=== PATIENT | female | born 1980 ===

== ENCOUNTER 2020-05-03 11:05 | Day surgery (SDC) | payer OTHER ==
[2020-05-01 15:02] VITALS: BMI 19.3
[2020-05-03] MEDS ORDERED: PROPOFOL 20 ML ONE ×2 (11:54)
[2020-05-03 12:47] VITALS: BP 120/70; PULSE 95; TEMP 98.6
== END 2020-05-03 12:38 | disposition home or self-care (01) ==
LOC: FASU-ENDO 11:05
PROVIDERS: ATTEND Internal Medicine Gastroenterology
PROC: 0DB78ZX Excision of Stomach, Pylorus, Via Natural or Artificial Opening Endoscopic, Diagnostic (ICD-10-PCS; 2020-05-03)
PROC: 0DB48ZX Excision of Esophagogastric Junction, Via Natural or Artificial Opening Endoscopic, Diagnostic (ICD-10-PCS; 2020-05-03)
PROC: 0DB98ZX Excision of Duodenum, Via Natural or Artificial Opening Endoscopic, Diagnostic (ICD-10-PCS; principal; 2020-05-03 11:51)
DX: K29.70 Gastritis, unspecified, without bleeding (principal); K31.89 Other diseases of stomach and duodenum; B96.81 Helicobacter pylori [H. pylori] as the cause of diseases classified elsewhere
CPT/HCPCS: 81025; 88305-TC; 88342-TC